=== PATIENT | male | born 1945 | race Caucasian/White ===

== ENCOUNTER 2016-08-19 11:04 | Observation (INO) | payer MEDICARE ==
[2016-08-19] MEDS ORDERED: SODIUM CHLORIDE 0.9% 1000ML 1,000 ML IVS PRN (11:24)
[2016-08-19] MEDS ORDERED: SODIUM CHLORIDE 0.9% (FLUSH) 10 ML SYG IV PRN ×2 (11:24→15:59)
[2016-08-19] MEDS ORDERED: KETOROLAC TROMETHAMINE INJ 30 MG/ML VIAL IV ONE (11:27)
[2016-08-19] MEDS ORDERED: PROMETHAZINE HCL INJ 12.5 MG in SODIUM CHLORIDE 0.9% 50ML 50 ML IVPB ONE (11:28)
--- NOTE | 2016-08-19 11:31 | ED.PDOC ---
History of Present Illness - General Chief Complaint: Blood Pressure Problem Stated Complaint: low blood pressure,headache Time Seen by Provider: 08/19/16 11:23 Source: patient Exam Limitations: no limitations - History of Present Illness Initial Comments: PT REPORTS 1 DAY HISTORY OF LOW BP READINGS AT HOME ASSOCIATED WITH COUGH, SOB, HEADACHE, NAUSEA, ABDOMINAL PAIN, DIZZINESS, CONFUSION, CHILLS, AND NIGHT SWEATS. PT DENIES, CONSTIPATION OR DIARRHEA. PT DENIES CHEST PAIN. Timing/Duration: 24 hours Improving Factors: nothing Worsening Factors: nothing Associated Symptoms: cough, fever/chills, malaise, nausea/vomiting, shortness of breath Allergies/Adverse Reactions: Allergies NO KNOWN ALLERGY Allergy (Unverified 05/16/12 15:02) Home Medications: Ambulatory Orders Aspirin [Aspirin Adult Low Dose] 81 mg PO DAILY 08/19/16 Atorvastatin Calcium [Lipitor] 40 mg PO DAILY 08/19/16 Carvedilol 12.5 mg PO BID 08/19/16 Chlorthalidone 12.5 mg PO DAILY 08/19/16 Lisinopril 20 mg PO BID 08/19/16 Pantoprazole Sodium 40 mg PO DAILY 08/19/16 Terazosin [Hytrin] 10 mg PO DAILY 08/19/16 Review of Systems - Review of Systems Constitutional: States: chills, malaise. Denies: fever EENTM: Denies: ear pain, throat pain Respiratory: States: cough, short of breath Cardiology: Denies: chest pain, palpitations Gastrointestinal/Abdominal: States: abdominal pain, nausea. Denies: constipation, diarrhea Genitourinary: Denies: dysuria, frequency Musculoskeletal: Denies: back pain, joint swelling Skin: Denies: change in color, lesions Neurological: States: headache. Denies: emotional problems Endocrine: States: excessive sweating. Denies: flushing Hematologic/Lymphatic: States: no symptoms reported Past Medical History (General) - Patient Medical History Hx Cardiac Disorders: Yes - IA X3, CABG, 2 STENTS Hx Congestive Heart Failure: No Hx Hypertension: Yes Hx Diabetes: No Surgical History: coronary bypass surgery - Vaccination History Hx Influenza Vaccination: Yes Hx Pneumococcal Vaccination: Yes - Social History Hx Tobacco Use: Yes Family Medical History - Family History Father Family History: Unknown Living Status: Physical Exam - Physical Exam General Appearance: Alert, No apparent distress, Well Developed, Well Groomed, Well Hydrated Ears, Nose, Throat: hearing grossly normal Neck: normal inspection Respiratory: normal breath sounds, no respiratory distress Cardiovascular/Chest: regular rate, rhythm, no murmur Gastrointestinal/Abdominal: soft, tenderness - MILD DIFFUSE ABD TENDERNESS Back Exam: normal inspection Extremity: normal range of motion, normal inspection Neurologic: alert, normal mood/affect, oriented x 3 Skin Exam: normal color, warm/dry Progress - Progress Progress: 08/19/16 13:11 PT RESTING COMFORTABLY, REPORTS IMPROVEMENT IN HEADACHE AND NAUSEA AFTER MEDS. SBP 101 AFTER 1 LITER OF NS. ADDITIONAL NS ORDERED. WILL CONTINUE TO OBSERVE. 08/19/16 14:18 PT NOW STATES THAT HEADACHE HAS RETURNED. SBP 95 AFTER 2ND LITER. WILL PLAN TO ADMIT FOR FURTHER WORKUP AND OBSERVATION. - EKG/XRAY/CT EKG: Sinus - @78BPM, RBBB - NORMAL AXIS, GOOD R WAVE PROGRESSION, no ST T wave changes - WHEN COMPARED TO PREVIOUS FROM 12/31/11 Departure - Departure Clinical Impression: Dehydration, Multiple complaints Hypotension Qualifiers: Hypotension type: unspecified hypotension type Qualifier Code: (I95.9) Hypotension, unspecified Rhabdomyolysis Qualifiers: Rhabdomyolysis type: non-traumatic Qualifier Code: (M62.82) Rhabdomyolysis Acute kidney failure Qualifiers: Acute renal failure type: unspecified Qualifier Code: (N17.9) Acute kidney failure, unspecified Time of Disposition: 14:21 Disposition: Admit Patient Condition: Fair Departure Forms: ED Discharge - Pt. Copy, Patient Portal Self Enrollment Home Medications: Ambulatory Orders Aspirin [Aspirin Adult Low Dose] 81 mg PO DAILY 08/19/16 Atorvastatin Calcium [Lipitor] 40 mg PO DAILY 08/19/16 Carvedilol 12.5 mg PO BID 08/19/16 Chlorthalidone 12.5 mg PO DAILY 08/19/16 Lisinopril 20 mg PO BID 08/19/16 Pantoprazole Sodium 40 mg PO DAILY 08/19/16 Terazosin [Hytrin] 10 mg PO DAILY 08/19/16 Decision To Admit - Decistion To Admit Decision to Admit Reason: Admit from ER - CASE DISCUSSED WITH CARLOS MANUEL STONE NP WHO AGREES TO ADMIT Decision to Admit Date: 08/19/16 Decision to Admit Time: 14:21
[2016-08-19] MEDS ORDERED: PROMETHAZINE HCL 25 MG TAB PO ONE (11:43)
--- NOTE | 2016-08-19 12:29 | RAD ---
EXAM DESCRIPTION: Chest,1 View CLINICAL HISTORY: sob, low bp COMPARISON: December 31, 2011 IMPRESSION: Single AP portable upright view of the chest shows cardiac silhouette and pulmonary vasculature to be within normal limits. Lungs are normally aerated and clear. Sternotomy wires are seen stable from previous. No obvious pleural effusion or pneumothorax is seen. Electronically signed by: Pee Mancilla MD 08/19/2016 12:17 PM CDT
[2016-08-19] MEDS ORDERED: SODIUM CHLORIDE 0.9% 1000ML 1,000 ML IVS ONE (13:03)
--- NOTE | 2016-08-19 15:00 | HP ---
SUPERVISING PHYSICIAN: Emily Munoz MD CHIEF COMPLAINT: Low blood pressure. HISTORY OF PRESENT ILLNESS: Mr. Nash is a 71-year-old, male patient who presented to the Emergency Room today complaining of a couple of days of low blood pressure readings at home that he associated with a cough, shortness of breath, nausea, abdominal pain, dizziness and some mild confusion. In the Emergency Department, his blood pressure on admission was 84/55 with a heart rate of 78. Saturation was 92% on room air. Laboratory studies showed a normal white count with a hemoglobin of 13.9, hematocrit 41.1, platelet count 162,000. Chemistries showed a mild hyponatremia with sodium 133, BUN 21, creatinine 1.65. He did have an elevated CPK of 444, but a normal troponin at less than 0.02. He also denied any chest pains related to the current symptoms. In the Emergency Department, he was given 2 liters of saline bolus with some improvement in his blood pressure, however, he remained with systolic in the 90s. Therefore, given his symptomatology, Dr. Nash, the Emergency Room physician, requested the patient be admitted and be placed in observation tonight for further evaluation and investigation of his hypotension. He was placed in observation on the Medical/Surgical Floor in stable condition. PAST MEDICAL HISTORY: 1. Coronary artery disease with 3 previous myocardial infarctions. 2. Hyperlipidemia. 3. Hypertension, although currently hypotensive. 4. History of benign prostatic hypertrophy. 5. Blepharospasms on the left side of the face for which he receives Botox injections. 6. Gastroesophageal reflux disease. 7. Chronic low back pain. PAST SURGICAL HISTORY: 1. Coronary artery bypass graft times 4 in 2004. 2. Multiple coronary artery stent placements. 3. Sinus surgeries. CURRENT MEDICATIONS: 1. Amelia 10/325 2 tablets q.i.d. 2. Hytrin 10 mg daily. 3. Pantoprazole 40 mg daily. 4. Chlorthalidone 12.5 mg daily. 5. Carvedilol 12.5 mg twice daily. 6. Lipitor 40 mg daily. 7. Aspirin 81 mg daily. 8. Lisinopril 20 mg daily. ALLERGIES: NO KNOWN DRUG ALLERGIES. FAMILY HISTORY: Significant for cardiovascular disease, cancer, hypertension. 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 He was in the [employer] for 4 years in the 60s. He is 2 years previously. He does live in [place]. He has a smoking quitting 30 years previously. He does admit to drinking approximately 6 pack of beer a week. REVIEW OF SYSTEMS: CONSTITUTIONAL: Positive for fevers, chills, general malaise. HEENT: Denies sore throats, earaches, nasal congestion. RESPIRATORY: As noted in history of present illness, some shortness of breath and cough. CARDIOVASCULAR: Denies chest pain or palpitations, but noted hypotension as noted in history of present illness. GASTROINTESTINAL: He has had some abdominal pain and nausea, but denies any constipation or diarrhea. GENITOURINARY: Denies dysuria, increased frequency although he has a history of benign prostatic hypertrophy. MUSCULOSKELETAL: Denies back pain, joint swelling. NEUROLOGIC: He has a headache, but denies any syncopal episodes or other neurologic deficits. PHYSICAL EXAMINATION: VITAL SIGNS: On admission to the Emergency Department, blood pressure 84/55, heart rate 78, temperature 97.1, saturation 92% on room air with respirations 16. Admission weight 84.6 kg. On admission to the Medical/Surgical Floor after 2 liters of fluids, the patient's blood pressure was 121/71 with heart rate 64. GENERAL: The patient when seen in the Emergency Department appeared to be in no acute distress, resting. He appeared to be well-nourished, well-developed. HEENT: Tympanic membranes clear bilaterally. Oropharynx is pink, mucous membranes dry with no lesions noted. NECK: Supple with full range of motion with no jugular venous distention noted. CHEST: Lungs clear to auscultation bilaterally without any rhonchi, wheezes, or rales. CARDIOVASCULAR: Regular rate and rhythm without any appreciable murmurs, gallops, or rubs. ABDOMEN: Soft, mild diffuse tenderness on palpation, but no rebound tenderness. Positive bowel sounds. EXTREMITIES: There is no cyanosis, clubbing or edema. NEUROLOGIC: The patient is alert and oriented times three. Cranial nerves II- XII are grossly intact. Facial features are symmetrical. Extraocular movements are within normal limits. There is no nystagmus noted. There are no discernible localizing or focalizing neuromotor deficits. LABORATORY: White count within normal limits at 8.7, hemoglobin 13.9, hematocrit 41.1, platelet count 162,000, differential without left shift. Coag studies showed normal PT, PT-T. Chemistries showed slightly low sodium of 133, but potassium 3.7, BUN 21, creatinine 1.65, glucose 129. Liver functions within normal limits except for CPK elevated 444. Troponin less than 0.02. Urinalysis showed just a small amount of bilirubin on dipstick with microscopic within normal limits. MICROBIOLOGY: Two sets of blood cultures were drawn. ASSESSMENT: 1. Mild hypotension, unknown etiology, although suspect possibly secondary to dehydration and medication for his benign prostatic hypertrophy and blood pressure interaction. 2. Elevated CPK, unknown etiology, without any mention of falls or other traumatic events, possibly related to some underlying dehydration. 3. Acute renal failure, likely secondary to prerenal azotemia state from underlying dehydration. 4. History of benign prostatic hypertrophy for which he takes Hytrin. 5. History of hypertension, although the patient is hypotensive. 6. History of coronary artery disease with previous myocardial infarctions times 3 and a coronary artery bypass graft times 4 in 2004 with the patient having no complaints of chest pains. 7. Abdominal pain with some diarrhea with the patient being afebrile with a normal white count, unknown etiology at this point, but possibly could be related to viral gastroenteritis. Await stool studies. 8. Mild hyponatremia, possibly related to some underlying diarrhea, although suspect related to his thiazide diuretic usage. PLAN: The patient will be placed in observation tonight for close observation. He will be placed on telemetry with vital signs. He was given 2 liters of fluids in the Emergency Department. This will be followed up with continued IV fluids at this point with normal saline at 100 an hour. The patient will need close monitoring on his medication regimen. He denies any weight loss or any changes. We will anticipate length of stay to be 1 to 2 days pending his clinical presentation and reassessment and repeat laboratory studies. In regards to the elevated CPK, hopefully it is simply related to underlying dehydration as well as the acute kidney failure as noted on initial laboratory studies. Until discharge, we will continue to monitor the patient closely and treat appropriately. #[id number] [facility]
[2016-08-19] MEDS ORDERED: ACETAMINOPHEN 325 MG TAB PO PRN (15:59)
[2016-08-19] MEDS ORDERED: IV SET AND CAP CHANGE INJ INJ SCH (16:00)
[2016-08-19] MEDS ORDERED: HYDROcodone 10MG/APAP 325MG 1 EA TAB PO ONE (18:04)
[2016-08-19] MEDS ORDERED: ATORVASTATIN 20 MG TAB PO SCH (21:00)
[2016-08-19] MEDS ORDERED: TERAZOSIN 5 MG CAP PO SCH (21:00)
[2016-08-19] MEDS: HYDROcodone 10MG/APAP 325MG 1 EA TAB PO SCH (21:35)
[2016-08-19] MEDS: CARVEDILOL 12.5 MG TAB PO SCH (21:36)
[2016-08-19] MEDS: SODIUM CHLORIDE 0.9% (FLUSH) 10 ML SYG IV SCH (21:36)
[2016-08-19] MEDS ORDERED: CYCLOBENZAPRINE HCL 10 MG TAB PO PRN (21:46)
--- NOTE | 2016-08-19 22:40 | PCM.CORE ---
Physician DVT/VTE - Nurse DVT Assessment & Total Each Risk Factor Represents 2 Points: Age 60-74 Each Risk Factor is 1 Point: Obesity (BMI >25) DVT Assessment Score: 3 - 5 or more Very High Risk Treatments: Early Ambulation *, Sequential Compression Device Pharmacological: Enoxaparin 40mg SQ Daily
[2016-08-19] MEDS ORDERED: PANTOPRAZOLE SODIUM TAB 40 MG PO ONE (23:28)
[2016-08-20] MEDS ORDERED: MORPHINE SULFATE INJ 10 MG/ML VIAL ONE (03:29)
[2016-08-20] MEDS ORDERED: MORPHINE SULFATE INJ 10 MG/ML VIAL IV PRN (03:29)
--- NOTE | 2016-08-20 04:16 | CT ---
EXAM DESCRIPTION: Abdomen/Pelvis w/Contrast 08/20/2016 4:13 AM CDT CLINICAL HISTORY: 71 years, Male, abdominal pain COMPARISON: [None] TECHNIQUE: Following the administration of intravenous contrast, volumetric CT acquisition was performed through the abdomen and pelvis. Images in the axial and coronal planes were presented for interpretation This exam was performed according to our departmental dose-optimization program, which includes automated exposure control, adjustment of the mA and/or kV according to patient size and/or use of iterative reconstruction technique. FINDINGS: The visualized portions of the lung bases are clear. The cardiomediastinal structures are within normal limits. Within the upper abdomen, the liver and spleen are normal in size and morphology. The gallbladder is normal in morphology. The intra/extrahepatic biliary tree is normal in appearance. The pancreas and adrenal glands are normal. The kidneys are normal in size bilaterally. The ureters are normal in course and caliber. The stomach and small intestines are within normal limits without evidence of bowel dilation or wall thickening. The appendix is well-visualized and normal, best seen on axial image 70 and compared to the right psoas muscle. The colon is stool filled and unremarkable. Within the pelvis, the bladder and rectum are normal. The prostate is enlarged measuring 6.5 cm in greatest transverse dimension. There are no pathologically enlarged inguinal, retroperitoneal, portacaval, or mesenteric lymph nodes. The soft tissue structures of the abdominal wall are normal. There are degenerative changes of the lower lumbar spine with multilevel facet hypertrophy and disc space narrowing. There are extensive vascular calcifications throughout the abdominal aorta and iliac arteries. Limited evaluation of the venous structures demonstrates no gross abnormalities. IMPRESSION: 1. No acute intra-abdominal process. 2. Enlarged prostate. 3. Extensive vascular calcifications. Electronically signed by: Taryn Storm MD 08/20/2016 4:16 AM CDT
[2016-08-20] MEDS ORDERED: PANTOPRAZOLE SODIUM TAB 40 MG PO SCH (06:30)
[2016-08-20] MEDS ORDERED: ASPIRIN EC 81 MG TAB PO SCH (09:00)
[2016-08-20] MEDS ORDERED: ENOXAPARIN SODIUM 40 MG/0.4 ML SYG SUBCU SCH (09:00)
[2016-08-20] MEDS ORDERED: TERAZOSIN 5 MG CAP PO SCH (09:00)
[2016-08-20] MEDS ORDERED: CHLORTHALIDONE 25 MG TAB PO SCH (09:00)
[2016-08-20] MEDS: SODIUM CHLORIDE 0.9% (FLUSH) 10 ML SYG IV SCH (09:19)
[2016-08-20] MEDS: CARVEDILOL 12.5 MG TAB PO SCH (09:19)
[2016-08-20] MEDS: HYDROcodone 10MG/APAP 325MG 1 EA TAB PO SCH ×2 (09:25→13:04)
[2016-08-20 10:48] VITALS: TEMP 98.1
[2016-08-20 14:54] VITALS: BP 122/72; O2SAT 94
--- NOTE | 2016-08-23 20:11 | DS ---
SUPERVISING PHYSICIAN: Christiano Munoz M.D. DISCHARGE DIAGNOSIS: 1. Mild hypotension on admission felt to be secondary to dehydration exacerbated by Hytrin which he takes for his benign prostatic hypertrophy. 2. Elevated CPK without any mention of falls or traumatic events, likely secondary to dehydration and his Lipitor. 3. Acute renal failure secondary to prerenal azotemia state from underlying dehydration improved after IV therapy and Lipitor. 4. History of benign prostatic hypertrophy for which he takes Hytrin. 5. History of hypertension, although the patient is hypotensive prior to admission. 6. History of coronary artery disease with previous myocardial infarctions times 3 with a coronary artery bypass graft times 4 in 2004 with the patient having no complaints of chest pains. 7. Abdominal pain with some diarrhea initially on admission with the patient being afebrile with a normal white count, unknown etiology at this point felt to be possibly secondary to viral gastroenteritis which resulted in his dehydration and exacerbated the hypotension. 8. Mild hyponatremia likely secondary to underlying diarrhea and exacerbated by his thiazide diuretic showing improvement after IV fluids. HISTORY OF PRESENT ILLNESS: Mr. Nash is a 71-year-old, male patient who presented to the Emergency Room complaining of a couple of days of low blood pressure readings at home for which he associated with a cough, shortness of breath, nausea, abdominal pain, dizziness and some mild confusion. In the Emergency Department, his blood pressure on admission was 84/55 with a heart rate of 78. Saturations were 92% on room air. Laboratory studies showed a normal white count with a hemoglobin of 13.9, hematocrit 41.1, platelet count 162,000. Chemistries showed a mild hyponatremia with sodium 133, BUN 21, creatinine 1.65. He did have an elevated CPK of 444, but a normal troponin at less than 0.02. He denied any chest pain that related to his current symptoms. In the Emergency Department, he was given 2 liters of saline bolus which resulted in improvement in his blood pressures, however, he remained with systolic in the 90s. Therefore, given his symptomatology, Dr. Nash, the Emergency Room physician, requested the patient be placed in observation on date of admission to further evaluate and investigate the underlying hypotension. He was placed in observation on the Medical/Surgical Floor in stable condition. LABORATORY STUDIES: Initial white count on admission was 8.7 and remained within normal limits at 6.3 at discharge. Hemoglobin and hematocrit were stable at discharge was 13.0 and 38.5, platelet count was 153,000. Differential was without a left shift. Coagulation studies showed to be normal. Chemistries showed a low sodium of 133, at discharge 131 with potassium 3.6, BUN 14, creatinine 0.84 compared to admission BUN 21, creatinine 1.65. Glucose was 91 at discharge. Liver functions showed to be within normal limits except for initial CPK on admission that was elevated at 444. Troponin was less than 0.02. After treatment and at time of discharge his CPK had gone down to 270. Urinalysis showed only a small amount of bilirubin on dipstick, otherwise within normal limits. He did have 1 occult blood that was negative. He had a stool culture that showed no enteric pathogens at 72 hours. He had a Clostridium Difficile A and B that were both negative. He had blood cultures times 2 that were negative after 4 days. RADIOLOGY: Initially in the Emergency Room, he had a chest x-ray and per radiology interpretation there was no mention of pleural effusions or pneumothorax. The lungs appeared to be normally aerated and clear. His EKG showed normal sinus rhythm with a right bundle branch block with no change noted compared to 12/30/11. Prior to discharge on the morning of, he had an abdominal and pelvic CT with contrast which per radiology interpretation showed no acute intraabdominal processes. He did have an enlarged prostate and extensive vascular calcifications. HOSPITAL COURSE: Mr. Nash was admitted as per History of Present Illness. Given initial 2 boluses of saline which was continued on the floor. His initial blood pressure on admission to the Medical/Surgical floor showed a blood pressure of 125/78. In the E. R., the lowest blood pressure noted was 84/ 55 at time of initial presentation. Heart rate remained within normal limits, at time of discharge was 68. He remained afebrile with a T max of 97.4. Clinically he remained hemodynamically stable and showed good improvement, however he did have some diarrhea which resolved without any treatment and associated with this was some abdominal discomfort for which a CT of the abdomen was performed and there were no acute findings. On the morning of discharge, the patient was felt to be clinically stable enough to continue with treatment at home. His blood pressure was 122/72, 68 pulse, and he was satting 94% on room air. He did have an elevated CPK initially on admission and this had improved after IV fluids as well as he had a low sodium which is more likely chronic for which he takes Chlorthalidone diuretic. He was discharged in stable condition. PLAN: Mr. Nash was discharged to have close clinical followup with his primary care provider. His primary care provider is the [facility] as scheduled and Dr. Orosco as needed. He was instructed to resume his home medications as previous except for noting that he was to hold his Lipitor until he was seen in followup. He was encouraged to continue with fluids to prevent dehydration. He was to monitor his blood pressure daily at least once in the morning and at night, and keep a log to bring with him to his followup appointment. He was told to return to the hospital should he have any return of his symptoms or any failure of improvement of his symptoms. At discharge, he was given refills for : 1. Carvedilol at 12.5 mg twice daily, #28 2. Chlorthalidone 12.5 mg daily, #28. No other new medications were added to his medication regimen. He is to resume a diet as normal. His activities were to increase as tolerated. He was discharged in stable condition. #[id number] [facility]
== END 2016-08-20 14:50 | disposition home or self-care (01) ==
LOC: ER 11:04 → MS 14:59
PROVIDERS: ADMIT Nurse Practitioner Family; ATTEND Nurse Practitioner Family
DX: I95.9 Hypotension, unspecified (principal); E86.0 Dehydration; N40.0 Benign prostatic hyperplasia without lower urinary tract symptoms; N17.9 Acute kidney failure, unspecified; I10 Essential (primary) hypertension; I25.10 Atherosclerotic heart disease of native coronary artery without angina pectoris; R10.9 Unspecified abdominal pain; R19.7 Diarrhea, unspecified; E87.1 Hypo-osmolality and hyponatremia; R06.02 Shortness of breath; I25.2 Old myocardial infarction; R51 Headache; I45.10 Unspecified right bundle-branch block; E78.5 Hyperlipidemia, unspecified; G24.5 Blepharospasm; K21.9 Gastro-esophageal reflux disease without esophagitis; G89.29 Other chronic pain; M54.5 Low back pain; Z95.1 Presence of aortocoronary bypass graft; Z95.5 Presence of coronary angioplasty implant and graft; Z79.82 Long term (current) use of aspirin; Z79.899 Other long term (current) drug therapy; Z87.891 Personal history of nicotine dependence; Z82.49 Family history of ischemic heart disease and other diseases of the circulatory system; Z80.9 Family history of malignant neoplasm, unspecified
CPT/HCPCS: 36415 ×3; 71010; 74177; 80048 ×2; 80076; 81001; 82270; 82550 ×2; 82553; 84484; 85025 ×2; 85610; 85730; 87040 ×2; 87045; 87046; 87449; 93005; 94760 ×2; 96361; 96372; 96374; 96375; 99284; G0378; J1650; J1885; J2270; J7030 ×2; Q0169

== ENCOUNTER → 2016-12-08 | Outpatient (CLI) | payer MEDICARE ==
--- NOTE | 2016-12-09 09:19 | MRI ---
EXAM DESCRIPTION: MRA Head and/or Neck CLINICAL HISTORY: 71 years Male, Clonic hemifacial spasm right-sided facial spasms COMPARISON: None. TECHNIQUE: Noncontrast MRA of the brain with 3-D [id number] imaging and MIP reformatted images. FINDINGS: MRI of the brain with MIP reformatted images demonstrates an anatomic variant at the [place] with the right posterior cerebral artery arising from the anterior circulation and moderate tortuosity of the basilar artery to the right of midline at the level of the brainstem. A large dominant left vertebral artery with a diminutive right vertebral artery also represents an anatomic variant. A large right posterior inferior cerebellar artery arises from the smaller right vertebral artery. Anteriorly both internal carotid arteries and internal carotid siphons are widely patent with normal bifurcation of each internal carotid artery and normal-appearing anterior communicating artery with tortuous anterior cerebral vessels. Each middle cerebral artery fills well without evidence of focal aneurysm with normal trifurcation vessels noted. No evidence of vasculitis or aneurysm is noted. No occlusion or high-grade stenosis is identified. A large vascular malformation is not identified. IMPRESSION: 1. 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 2. Persistent circulation on the right with the right posterior cerebral artery arising from the anterior circulation, an anatomic variant. 3. No evidence of aneurysm or occlusion or vascular malformation or vasculitis noted. Electronically signed by: Christiano Mcleod MD 12/09/2016 9:18 AM CDT
== END | disposition home or self-care (01) ==
LOC: MRI 10:38
PROVIDERS: ATTEND Neurological Surgery
DX: R51 Headache (principal); R25.1 Tremor, unspecified; G51.3 Clonic hemifacial spasm

== ENCOUNTER 2017-01-21 04:52 | Emergency (ER) | payer MEDICARE ==
[2017-01-21 05:05] VITALS: TEMP 96.1
[2017-01-21] MEDS ORDERED: EPINEPHrine HCL AMP 1 MG/ML AMP SUBCU ONE (05:13)
[2017-01-21] MEDS ORDERED: methylPREDNISolone SODIUM SUC 125 MG/2 ML VIAL IV ONE (05:13)
[2017-01-21] MEDS ORDERED: diphenhydrAMINE HCL 50 MG/ML VIAL IV ONE (05:14)
[2017-01-21] MEDS ORDERED: diphenhydrAMINE HCL 50 MG/ML VIAL ONE (05:14)
[2017-01-21] MEDS ORDERED: EPINEPHrine HCL AMP 1 MG/ML AMP ONE (05:14)
[2017-01-21] MEDS ORDERED: methylPREDNISolone SODIUM SUC 125 MG/2 ML VIAL ONE (05:14)
--- NOTE | 2017-01-21 05:25 | ED.PDOC ---
History of Present Illness - General Source: patient, RN notes reviewed, Vital Signs reviewed Exam Limitations: no limitations - History of Present Illness Initial Comments: Patient comes into the ER with tongue and throat swelling that started ~ 2 hours prior to arrival. It woke him up due to him having a hard time breathing. He took Benadryl 50mg PO without improvement so he came in. He reports this happens several times a year and has done so for many years. Usually improves with steroids. In the past the swelling has varied from his tongue to his lip, thumb and foot. He has had testing and no cause has been identified. Timing/Duration: 1-3 hours Severity: severe Improving Factors: nothing Worsening Factors: nothing Associated Symptoms: other - difficulty breathing <Carlene Gleason - Last Filed: 01/21/17 06:58> <Michael Mayorga - Last Filed: 01/21/17 09:54> - General Chief Complaint: General Stated Complaint: swollen tongue Time Seen by Provider: 01/21/17 05:11 - History of Present Illness Allergies/Adverse Reactions: Allergies NO KNOWN ALLERGY Allergy (Verified 01/21/17 05:55) Home Medications: Ambulatory Orders Aspirin [Aspirin Adult Low Dose] 81 mg PO DAILY 08/19/16 Atorvastatin Calcium [Lipitor] 40 mg PO DAILY 08/19/16 HYDROcodone 10MG/APAP 325MG [[place] 10/325] 2 tab PO QID 08/19/16 Pantoprazole Sodium 40 mg PO DAILY 08/19/16 Terazosin [Hytrin] 10 mg PO DAILY 08/19/16 Carvedilol 12.5 mg PO BID #28 tab 08/20/16 Chlorthalidone 12.5 mg PO DAILY #28 tab 08/20/16 Cyclobenzaprine HCl 10 mg PO DAILY 01/21/17 Lisinopril [Zestril] 20 tablet PO DAILY 01/21/17 Review of Systems - Review of Systems Constitutional: Denies: chills, diaphoresis, fever, malaise EENTM: States: see HPI, mouth swelling - tongue and throat Respiratory: States: short of breath. Denies: cough, stridor, wheezing Cardiology: States: no symptoms reported. Denies: chest pain Gastrointestinal/Abdominal: States: no symptoms reported Musculoskeletal: States: no symptoms reported Skin: States: no symptoms reported Neurological: States: no symptoms reported All other Systems: No Change from Baseline <Carlene Gleason Last Filed: 01/21/17 06:58> Past Medical History (General) - Patient Medical History Hx Seizures: No Hx Stroke: No Hx Asthma: No Hx of COPD: No Hx Cardiac Disorders: Yes - CA X3, CABG, 2 STENTS Hx Congestive Heart Failure: No Hx Hypertension: Yes Hx Diabetes: No Hx MRSA: No Surgical History: coronary bypass surgery, other - Vaccination History Hx Influenza Vaccination: Yes Hx Pneumococcal Vaccination: Yes - Social History Hx Tobacco Use: Yes Hx Alcohol Use: No Hx Substance Use: No Hx Physical Abuse: No Hx Emotional Abuse: No <Carlene Gleason Last Filed: 01/21/17 06:58> Family Medical History - Family History Father Family History: Unknown Living Status: Hx Cardiac Disease: Yes Hx Family Cancer: Yes Mother Living Status: Hx Cardiac Disease: Yes <Carlene Gleason Last Filed: 01/21/17 06:58> Physical Exam - Physical Exam General Appearance: Alert, Obvious distress, Well Developed, Well Groomed, Well Hydrated, Well Nourished Ears, Nose, Throat: other - angioedema of tongue, very muffled voice Neck: supple, normal inspection Respiratory: lungs clear, normal breath sounds, no respiratory distress, no accessory muscle use, other - good air movement w/o wheezing or stridor. Sating 97% on 2L O2 Cardiovascular/Chest: regular rate, rhythm, no gallop, no JVD, no murmur Extremity: normal range of motion, normal inspection Neurologic: alert, normal mood/affect, oriented x 3 Skin Exam: normal color, warm/dry Comments: Vital Signs 01/21/17 05:01 Temperature 96.1 F L Pulse Rate [ 67 left] Respiratory 18 Rate Blood Pressure 153/96 [left] O2 Sat by Pulse 95 Oximetry <Carlene Gleason - Last Filed: 01/21/17 06:58> Progress - Progress Progress: 01/21/17 05:28 Gave Epinephrine 0.3mg SQ, Solu-Medrol 125mg IV and Benadryl 50mg IV 01/21/17 05:33 Patient reports tongue is feeling more swollen despite above medications. Symptoms typically improve with steroids per patient so will start Solu-Medrol 500mg IVPB 01/21/17 05:54 Patient was starting to develop some stridor so gave Epinephrine 1mg IV - now reports he is breathing better and stridor is gone. Will also give Racemic epinephrine neb. 01/21/17 06:12 Still reports he is breathing better but tongue is still very edematous. ? Hereditary Angioedema 01/21/17 06:30 BP has dropped to 85/63. Will give a 1 NS bolus. He had a similar episode of hypotension in August but it was not associated with an episode of angioedema at that time. 01/21/17 06:49 BP 97/58. Still reports no change in tongue swelling 01/21/17 06:[address] Mayorga @ [facility] 01/21/17 07:03 Discussed w/ Hospitalist Florina Juárez NP. She will come by and evaluate patient. <Carlene Gleason - Last Filed: 01/21/17 06:58> - Results/Orders Results/Orders: Decided to leave AMA declined to be admitted stating had several episodes in the past and he brendan follow up wiht his primary md. <Michael Mayorga - Last Filed: 01/21/17 09:54> Departure <Carlene Gleason - Last Filed: 01/21/17 06:58> - Departure Time of Disposition: 09:53 <Michael Mayorga - Last Filed: 01/21/17 09:54> - Departure Clinical Impression: Idiopathic angioedema Qualifiers: Encounter type: initial encounter Qualified Code(s): T78.3XXA - Angioneurotic edema, initial encounter Disposition: Left Against Medical Advice Condition: Fair Departure Forms: ED Discharge - Pt. Copy, Patient Portal Self Enrollment Referrals: Kg Orosco MD [Primary Care Provider] - 1-2 Weeks Home Medications: Ambulatory Orders Aspirin [Aspirin Adult Low Dose] 81 mg PO DAILY 08/19/16 Atorvastatin Calcium [Lipitor] 40 mg PO DAILY 08/19/16 HYDROcodone 10MG/APAP 325MG [[place] 10/325] 2 tab PO QID 08/19/16 Pantoprazole Sodium 40 mg PO DAILY 08/19/16 Terazosin [Hytrin] 10 mg PO DAILY 08/19/16 Carvedilol 12.5 mg PO BID #28 tab 08/20/16 Chlorthalidone 12.5 mg PO DAILY #28 tab 08/20/16 Cyclobenzaprine HCl 10 mg PO DAILY 01/21/17 Lisinopril [Zestril] 20 tablet PO DAILY 01/21/17 Critical Care Note - Critical Care Note Total Time (mins): 40 Comments: Was at bedside during medication administrations, monitored cardiac function. <Carlene Gleason - Last Filed: 01/21/17 06:58>
[2017-01-21] MEDS ORDERED: methylPREDNISolone SODIUM SUC 500 MG in SODIUM CHLORIDE 0.9% 250ML 250 ML IVPB ONE (05:32)
[2017-01-21] MEDS ORDERED: SODIUM CHLORIDE 0.9% 500ML 500 ML ONE (05:34)
[2017-01-21] MEDS ORDERED: EPINEPHrine INJ 0.1 MG/ML 10 ML SYG IV ONE (05:36)
[2017-01-21] MEDS ORDERED: RACEPINEPHRINE 2.25% 0.5 ML UD NEB ONE (05:36)
[2017-01-21] MEDS ORDERED: SODIUM CHLORIDE 0.9% 1000ML 1,000 ML ONE (06:27)
[2017-01-21] MEDS ORDERED: SODIUM CHLORIDE 0.9% 1000ML 1,000 ML IVS ONE (06:30)
[2017-01-21 08:33] VITALS: BP 106/82
[2017-01-21 09:02] VITALS: O2SAT 92
== END 2017-01-21 08:40 | disposition left against medical advice (07) ==
LOC: ER 04:52
DX: T78.3XXA Angioneurotic edema, initial encounter (principal); Z87.891 Personal history of nicotine dependence; I25.2 Old myocardial infarction; I10 Essential (primary) hypertension; Z95.1 Presence of aortocoronary bypass graft; Z98.61 Coronary angioplasty status; Z79.82 Long term (current) use of aspirin; Z79.899 Other long term (current) drug therapy
CPT/HCPCS: 94640; J1200; J2930; J7030; J7040

== ENCOUNTER 2017-04-10 05:12 | Emergency (ER) | payer MEDICARE ==
[2017-04-10 05:32] VITALS: O2SAT 94
[2017-04-10] MEDS ORDERED: methylPREDNISolone SODIUM SUC 125 MG/2 ML VIAL ONE (05:39)
[2017-04-10] MEDS ORDERED: EPINEPHrine HCL AMP 1 MG/ML AMP ONE (05:39)
[2017-04-10] MEDS ORDERED: EPINEPHrine HCL AMP 1 MG/ML AMP SUBCU ONE (05:42)
[2017-04-10] MEDS ORDERED: methylPREDNISolone SODIUM SUC 125 MG/2 ML VIAL IV ONE (05:43)
--- NOTE | 2017-04-10 05:49 | ED.PDOC ---
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 Timing/Duration: 1-3 hours Severity: moderate Improving Factors: nothing Worsening Factors: other - stated occurs suddenly Associated Symptoms: other - see hpi was seen with same symptoms 01/21/17 was about to be admitted for obs but left ama <Michael Mayorga - Last Filed: 04/10/17 05:57> <Gustavo Marie - Last Filed: 04/10/17 08:25> - General Chief Complaint: General Stated Complaint: unable to swallow/thinks throat closing up Time Seen by Provider: 04/10/17 05:41 - History of Present Illness Allergies/Adverse Reactions: Allergies NO KNOWN ALLERGY Allergy (Verified 04/10/17 05:23) Home Medications: Ambulatory Orders Aspirin [Aspirin Adult Low Dose] 81 mg PO DAILY 08/19/16 Atorvastatin Calcium [Lipitor] 40 mg PO DAILY 08/19/16 HYDROcodone 10MG/APAP 325MG [[place] 10/325] 2 tab PO QID 08/19/16 Pantoprazole Sodium 40 mg PO DAILY 08/19/16 Terazosin [Hytrin] 10 mg PO DAILY 08/19/16 Carvedilol 12.5 mg PO BID #28 tab 08/20/16 Chlorthalidone 12.5 mg PO DAILY #28 tab 08/20/16 Cyclobenzaprine HCl 10 mg PO DAILY 01/21/17 Lisinopril [Zestril] 20 tablet PO DAILY 01/21/17 Prednisone [Deltasone] 20 mg PO BID #5 tab 04/10/17 Review of Systems - Review of Systems Constitutional: States: no symptoms reported EENTM: States: see HPI Respiratory: States: no symptoms reported Cardiology: States: no symptoms reported Gastrointestinal/Abdominal: States: no symptoms reported Genitourinary: States: no symptoms reported Skin: States: no symptoms reported Neurological: States: no symptoms reported <Michael Mayorag - Last Filed: 04/10/17 05:57> - Review of Systems Musculoskeletal: States: no symptoms reported Endocrine: States: other - HAS INTERMITTENT SWELLING IN MULTIPILE AREAS. Hematologic/Lymphatic: States: no symptoms reported <Gustavo Marie - Last Filed: 04/10/17 08:25> Past Medical History (General) - Patient Medical History Hx Seizures: No Hx Stroke: No Hx Dementia: No Hx Asthma: No Hx of COPD: No Hx Cardiac Disorders: Yes Hx Congestive Heart Failure: Yes Hx Pacemaker: No Hx Hypertension: Yes Hx Thyroid Disease: No Hx Diabetes: No Hx Gastroesophageal Reflux: No Hx Renal Disease: No Hx Cancer: No Hx of HIV: No Hx Hepatitis C: No Hx MRSA: No Surgical History: coronary bypass surgery, other - stents - Vaccination History Hx Tetanus, Diphtheria Vaccination: Yes Hx Influenza Vaccination: Yes Hx Pneumococcal Vaccination: Yes - Social History Hx Tobacco Use: No Hx Alcohol Use: No Hx Substance Use: No Hx Substance Use Treatment: No Hx Depression: No Hx Physical Abuse: No Hx Emotional Abuse: No - Triage Comment ED Triage Comment: Presents to ED from home--POV--Amb to ER--C/O throat closing up on him and cannot swallow states. Asking for ice water in ER room and tolerate well and no difficulty swallowing noted. <Michael Mayorga - Last Filed: 04/10/17 05:57> Family Medical History - Family History Father Family History: Unknown Living Status: Hx Cardiac Disease: Yes Hx Family Cancer: Yes Mother Living Status: Hx Cardiac Disease: Yes <Michael Mayorga - Last Filed: 04/10/17 05:57> Physical Exam - Physical Exam General Appearance: Alert, Anxious, No apparent distress Eye Exam: bilateral normal Ears, Nose, Throat: hearing grossly normal, other - tongue swollen Neck: supple, normal inspection Respiratory: lungs clear, normal breath sounds, no respiratory distress Cardiovascular/Chest: regular rate, rhythm, no gallop, no murmur Gastrointestinal/Abdominal: non tender, soft, no organomegaly Back Exam: no vertebral tenderness Extremity: no pedal edema, no calf tenderness Neurologic: alert, oriented x 3 Skin Exam: normal color, warm/dry <Michael Mayorga - Last Filed: 04/10/17 05:57> Progress - Progress Progress: 04/10/17 07:15 ASSUMED CARE OF THE PATIENT. STATES HE FEELS MUCH BETTER. DOES HAVE SWELLING TO THE R SIDE OF THE TONGUE C/W ANGIOEDEMA. ABLE TO NOY PO FLUIDS. PT WANTS TO GO HOME. HAS HAD MULTIPLE EPISODES AND HAS BEEN EVALUATED BY MULTIPLE DOCTORS INCLUDING ALLERGY AND IMMUNOLOGY. <Gustavo Marie - Last Filed: 04/10/17 08:25> Departure <Michael Mayorga Kaley - Last Filed: 04/10/17 05:57> - Departure Time of Disposition: 08:22 <Gustavo Marie - Last Filed: 04/10/17 08:25> - Departure Clinical Impression: Angio-edema Qualifiers: Encounter type: initial encounter Qualified Code(s): T78.3XXA - Angioneurotic edema, initial encounter Disposition: Discharge to Home or Self Care Condition: Good Departure Forms: ED Discharge - Pt. Copy, Patient Portal Self Enrollment Instructions: DI for Angioedema Referrals: Kg Orosco MD [Primary Care Provider] - 1-2 Weeks Prescriptions: Prednisone [Deltasone] 20 mg PO BID #5 tab Home Medications: Ambulatory Orders Aspirin [Aspirin Adult Low Dose] 81 mg PO DAILY 08/19/16 Atorvastatin Calcium [Lipitor] 40 mg PO DAILY 08/19/16 HYDROcodone 10MG/APAP 325MG [[place] 10/325] 2 tab PO QID 08/19/16 Pantoprazole Sodium 40 mg PO DAILY 08/19/16 Terazosin [Hytrin] 10 mg PO DAILY 08/19/16 Carvedilol 12.5 mg PO BID #28 tab 08/20/16 Chlorthalidone 12.5 mg PO DAILY #28 tab 08/20/16 Cyclobenzaprine HCl 10 mg PO DAILY 01/21/17 Lisinopril [Zestril] 20 tablet PO DAILY 01/21/17 Prednisone [Deltasone] 20 mg PO BID #5 tab 04/10/17
[2017-04-10 06:25] VITALS: TEMP 95.8
[2017-04-10 07:58] VITALS: BP 136/88
== END 2017-04-10 08:37 | disposition home or self-care (01) ==
LOC: ER 05:12
DX: T78.3XXA Angioneurotic edema, initial encounter (principal); I11.0 Hypertensive heart disease with heart failure; I50.9 Heart failure, unspecified; Z95.1 Presence of aortocoronary bypass graft; Z98.61 Coronary angioplasty status; Z79.82 Long term (current) use of aspirin; Z79.899 Other long term (current) drug therapy

== ENCOUNTER → 2017-05-19 | Outpatient (CLI) | payer MEDICARE | END | disposition home or self-care (01) | LOC: GMAB 14:19 | PROVIDERS: ATTEND Family Medicine | DX: M10.071 Idiopathic gout, right ankle and foot (principal) ==

== ENCOUNTER → 2018-09-16 | Outpatient (CLI) | payer MEDICARE ==
--- NOTE | 2018-09-18 14:02 | MRI ---
EXAM: Brain w/wo Contrast CLINICAL HISTORY: CLONIC HEMIFACIAL SPASM G31.3 COMPARISON STUDY: CT head without contrast July 31, 2013 TECHNICAL: Multi-sequence, multiplanar non-contrast MRI images were acquired through the brain. FINDINGS: No acute abnormality on the diffusion weighted scan. There is no finding to suggest an acute territorial infarction. There are minimal periventricular white matter changes suggestive of chronic microvascular disease. There is no mass or mass effect. There is no evidence for hemorrhage. Flow voids are seen within the expected intracranial vessels. Posterior fossa and midline structures are negative. IMPRESSION: MINIMAL PERIVENTRICULAR WHITE MATTER CHANGES WITHOUT ACUTE INTRACRANIAL ABNORMALITY. Electronically signed by: Kalyan Fraire MD 09/18/2018 2:00 PM CDT
== END ==
LOC: MRI 11:00
PROVIDERS: ATTEND Neurological Surgery
DX: G51.39 Clonic hemifacial spasm, unspecified (principal)

== ENCOUNTER → 2020-05-16 | Outpatient (CLI) | payer OTHER, MEDICARE | LOC: YCFC.O 08:45 | PROVIDERS: ATTEND Family Medicine | DX: E78.5 Hyperlipidemia, unspecified (principal); I10 Essential (primary) hypertension; R53.83 Other fatigue; Z12.5 Encounter for screening for malignant neoplasm of prostate | CPT/HCPCS: 36415; 80053; 80061; 81001; 84443; 85025; G0103 ==

== ENCOUNTER → 2020-06-17 | Outpatient (CLI) | payer OTHER, MEDICARE | LOC: YCFC.O 10:57 | PROVIDERS: ATTEND Family Medicine | DX: R53.83 Other fatigue (principal) ==